=== PATIENT | male | born 1990 | race American Indian/Alaskan Native ===

== ENCOUNTER 2025-04-11 05:25 | Emergency (ER) | payer MEDICAID, SELFPAY ==
[2025-04-11 05:28] VITALS: PULSE 77; RESP 20; O2SAT 99; BMI 36.5
[2025-04-11 05:39] VITALS: BP 161/107; PULSE 84; RESP 20; TEMP 37.3; O2SAT 96
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
[2025-04-11 05:49] VITALS: PULSE 74
--- NOTE | 2025-04-11 05:50 | PD.EDRME ---
Rapid Medical Screening Exam RME Arrival date/time: 04/11/25 05:25 Chief Complaint: Alcohol Time Seen by Provider: 04/11/25 05:36 Vital signs: Vital Signs Temperature 99.2 F 04/11/25 05:39 Pulse Rate 84 04/11/25 05:39 Respiratory Rate 20 04/11/25 05:39 Blood Pressure 161/107 H 04/11/25 05:39 Pulse Oximetry (%) 96 04/11/25 05:39 Oxygen Delivery Method Room Air 04/11/25 05:39 Vital signs reviewed by provider: Yes RME Narrative: 35yo male with a history of alcohol abuse BIBA from home presents to the ED for a chief complaint of alcohol withdrawal. Patient drinks a pint of liquor per day. Patient has not drank for the last few hours and has had persistent N/V. Reports having a history of alcohol withdrawals in the past.
[2025-04-11] MEDS: LORazepam 2 MG/ML VIAL IVP (05:57)
[2025-04-11 06:00] VITALS: BP 122/105; PULSE 94; RESP 18; TEMP 37.2; O2SAT 98
[2025-04-11 06:04] LABS: Basophils # (Auto) 0.1 Thou/mm3 (0.0-0.2); Basophils % (Auto) 2 % (0-2.5); Eosinophils # (Auto) 0.2 Thou/mm3 (0.0-0.5); Eosinophils % (Auto) 4 % (0-10); Hematocrit 39.2 % (41.0-53.0); Hemoglobin 13.7 g/dL (13.5-16.0); Immature Granulocytes Auto 0.02 Thou/mm3 (0.00-0.00); Lymphocytes # (Auto) 1.3 Thou/mm3 (1.0-4.8); Lymphocytes % (Auto) 24 % (10-50); Mean Corpuscular HGB Conc 34.9 g/dl (31.0-37.0); Mean Corpuscular Hemoglobin 30.6 pg (25.0-35.0); Mean Corpuscular Volume 88 fL (80-100); Monocytes # (Auto) 0.6 Thou/mm3 (0.0-0.8); Monocytes % (Auto) 12 % (0-12); Neutrophils # (Auto) 3.1 Thou/mm3 (1.8-7.7); Neutrophils % (Auto) 58 % (37-80); Nucleated Red Blood Cell # 0.00 Thou/mm3 (0.00-0.00); Nucleated Red Blood Cell % 0 /100 WBC (0); Platelet Count 142 Thou/mm3 (140-440); RDW Standard Deviation 48.9 fL (35.1-43.9); Red Blood Count 4.47 Miln/mm3 (4.50-5.90); White Blood Count 5.4 Thou/mm3 (3.8-10.6)
[2025-04-11 06:15] LABS: Amphetamine/Methamp Scrn,U Negative (Negative); Barbiturate Screen,Urine Positive (Negative); Benzodiazepines Screen,Urine Negative (Negative); Benzoylecgonine Screen, Ur Negative (Negative); Fentanyl Screen,Urine Negative (Negative); Opiate Screen,Urine Negative (Negative); THC Screen,Urine Negative (Negative)
[2025-04-11 06:27] LABS: Alanine Aminotransferase 91 U/L (10-49); Albumin, Serum 4.4 gm/dL (3.5-5.0); Albumin/Globulin Ratio 1.4 (1.2-2.2); Alcohol, Blood Medical < 10.0 mg/dL (0-10.0); Alkaline Phosphatase 105 U/L (46-116); Anion Gap 12 (7-16); Aspartate Amino Transferase 132 U/L (0-34); BUN/Creatinine Ratio 7 Ratio (12-20); Bilirubin,Total 1.0 mg/dL (0.3-1.2); Blood Urea Nitrogen 6 mg/dL (9-23); Calcium 9.1 mg/dL (8.3-10.6); Calcium (Corrected) 9.1 mg/dL (8.5-10.1); Carbon Dioxide 25.4 mMol/L (20.0-31.0); Chloride 108 mMol/L (98-107); Creatinine (Component) 0.9 mg/dL (0.6-1.3); Estimated Creatinine Clearance 138.4 mL/min (>60); Globulin 3.1 gm/dL (2.3-3.5); Glucose 109 mg/dL (74-106); Lipase 29 U/L (12-53); Magnesium 1.8 mg/dL (1.6-2.6); Osmolality,Calculated 287 (275-295); Potassium 3.8 mMol/L (3.4-5.1); Sodium 145 mMol/L (136-145); Total Protein 7.5 gm/dL (5.7-8.2); Troponin I < 0.002 ng/mL (0.0-0.045); eGFR > 60 See Note
--- NOTE | 2025-04-11 06:29 | PD.EDALCOH ---
ED Alcohol RME/HPI General Chief Complaint: Alcohol Stated Complaint: N/V Time Seen by Provider: 04/11/25 05:36 Arrival date/time: 04/11/25 05:25 Limitations: no limitations RME / HPI RME / HPI narrative: 35yo male with a history of alcohol abuse TIM from home presents to the ED for a chief complaint of alcohol withdrawal. Patient drinks a pint of liquor per day. Patient has not drank for the last few hours and has had persistent N/V. Reports having a history of alcohol withdrawals in the past. DR. TAVARES MAIN ED EVALUATION: 35 year old male with past medical history of TBI with surgery and alcohol use daily, last drink today presents to the Emergency Department BIBA with complaint of withdrawals and he would like help quitting drinking. Last drink was vodka or something this morning. No history of diabetes or hypertension. Family history is significant for alcohol abuse, both parents. Related Data Previous Rx's ?Medication ?Instructions ?Recorded lorazepam 1 mg tablet (Ativan) 1 mg PO Q4H PRN alcohol withdrawal 04/11/25 #16 tabs Allergies Allergy/AdvReac Type Severity Reaction Status Date / Time CITRIS Allergy Mild Difficulty Uncoded 04/11/25 05:46 Swallowing Review of Systems Review of Systems Systems Reviewed: All systems reviewed, normal except as documented Past Medical History Past Medical History NEUROLOGIC: Positive Cerebrovascular Accident (TBI) Social History SMOKING STATUS: Current some day smoker SUBSTANCE USE: unknown ALCOHOL: Current ED Exam Narrative Physical exam: No tremors General Limitations: Present no limitations General appearance: Present alert and in no apparent distress Head Head exam: Present atraumatic, normocephalic and normal inspection Eye Eye exam: Present normal appearance, PERRL and EOMI ENT ENT exam: Present normal exam, normal oropharynx and mucous membranes moist Neck Neck exam: Present normal inspection, full ROM and trachea midline Chest Chest inspection: Present normal inspection and symmetric chest wall rise Respiratory Respiratory exam: Present normal lung sounds bilaterally Cardiovascular Cardiovascular exam: Present regular rate, normal rhythm and normal heart sounds Abdominal Exam Abdominal exam: Present soft and normal bowel sounds Extremities Exam Extremities exam: Present normal inspection and full ROM Back Exam Back exam: Present normal inspection and full ROM Neurological Exam Neurological exam: Present alert, oriented X3 and CN II-XII intact Psychiatric Psychiatric exam: Present normal affect and normal mood Skin Skin exam: Present warm, dry, intact and normal color Course Quality Measures none Orders Category Date 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 04/11/25 05:49 Active EKG (ED ONLY) *Do not use* NOW Care 04/11/25 05:49 Completed EKG (ED Only) Stat Exams 04/11/25 05:49 Ordered Alcohol, Blood Medical Stat Lab 04/11/25 05:40 Completed B-Type Natriuretic Peptide Stat Lab 04/11/25 05:40 Completed CBC Stat Lab 04/11/25 05:40 Completed Comprehensive Metabolic Panel Stat Lab 04/11/25 05:40 Completed Drug Screen,Urine Stat Lab 04/11/25 05:51 Completed Lipase Stat Lab 04/11/25 05:40 Completed Magnesium Stat Lab 04/11/25 05:40 Completed Partial Thromboplastin Time Stat Lab 04/11/25 05:40 Completed Prothrombin Time with INR Stat Lab 04/11/25 05:40 Completed Troponin I Stat Lab 04/11/25 05:40 Completed LORazepam [Ativan Inj] Med 04/11/25 05:48 Discontinued 2 mg IVP X1 ONE Sodium Chloride 0.9% 1000 ml [Ns] 1,000 ml Med 04/11/25 06:43 Discontinued IV 999 mls/hr Vital Signs Vital signs: Vital Signs Temperature 99.2 F 04/11/25 05:39 Pulse Rate 84 04/11/25 05:39 Respiratory Rate 20 04/11/25 05:39 Blood Pressure 161/107 H 04/11/25 05:39 Pulse Oximetry (%) 96 04/11/25 05:39 Oxygen Delivery Method Room Air 04/11/25 05:39 Discharge Plan Plan Patient Disposition: HOME (Self Care) Patient condition on transfer: Stable Prescriptions/Referrals Prescriptions/Med Rec: New lorazepam [Ativan] 1 mg tablet 1 mg PO Q4H MDD 6 PRN (Reason: alcohol withdrawal) Qty: 16 0RF Referrals: [facility] [Outside] - 04/13/25 No Primary/Family,Physician [Primary Care Provider] - In 1 week Problem List Clinical Impression: Alcohol abuse with withdrawal Patient/Caregiver Discharge Instructions Education Materials: Alcoholism: Getting Help, Alcohol Addiction, Addiction: Getting Help Additional Instructions: Take your Ativan as needed for alcohol withdrawals. Buy a multivitamin and take daily. Please follow-up with your primary care physician within 2-3 days. Return to the Emergency Department as needed. Print Language: Macedonian Stand Alone Forms: Miranda Award Info., Patient Portal Info Letter Alcohol MDM Narrative MDM Narrative: I, Griselda Evans, am scribing for and in the presence of Dr. Tavares. Patient data External records reviewed:: [facility] previous records and EMS form Clinical information provided by:: patient and EMS Social determinants that could affect healthcare access:: alcohol use Patient has the following chronic illnesses:: TBI with surgery and alcohol use daily, last drink today. Family history is significant for alcohol abuse, both parents. How is presenting disease/condition affected by chronic disease/condition?: exacerbated by Evaluation data The following diagnostics were reviewed and interpreted by me:: lab results and EKG tracing(s) Lab and/or radiology exams considered but not ordered:: none Interpretation Summary: My interpretation: EKG performed at 0557 hours, sinus rhythm, rate 83, no acute changes, no STEMI Medications / Prescriptions Medications or Prescriptions considered but not ordered:: none Medication administrations:: Medication Administration History Discontinued Medications Sodium Chloride (Ns) 1,000 mls @ 999 mls/hr IV .Q1H1M ONE Stop: 04/11/25 07:43 Last Infusion: 04/11/25 08:11 Dose: Infused Documented By: Admin: 04/11/25 06:55 Dose: 999 mls/hr Documented By: GISEL Lorazepam (Lorazepam 2 Mg/Ml Vial) 2 mg IVP X1 ONE Stop: 04/11/25 05:49 Last Admin: 04/11/25 05:57 Dose: 2 mg Documented By: SIMON see above Consultations Consultation(s) initiated? (list below): No Diagnosis Differential diagnosis alcohol: alcohol withdrawal delirium, alcohol intoxication, alcohol ketoacidosis and alcohol withdrawal seizure Most likely diagnosis given after review of the tests above:: Alcohol withdrawals Admission Indicated Admission indicated?: not indicated Admission Request Was there a request for admission?: No Disposition Plan Disposition Plan: Discharge Discharge Attestation Discharge Attestation: The patient and all family members were given an opportunity to ask questions and understood the discharge instructions. Discharge instructions specifically effects, indications for sooner follow up or return to the emergency department, and the expected course of current diagnosis. Patient condition: Stable
[2025-04-11 06:38] LABS: INR 1.0 (0.9-1.3); Partial Thromboplastin Time 26.5 Seconds (22.0-36.0); Prothrombin Time 10.8 Seconds (9.0-12.2)
[2025-04-11 06:45] LABS: B-Type Natriuretic Peptide < 20 pg/mL (0-100)
[2025-04-11] MEDS: SODIUM CHLORIDE 0.9% 1000 ML 1,000 ML 999 ML IV (06:55)
[2025-04-11 08:46] VITALS: BP 146/91; PULSE 83; RESP 16; TEMP 36.6; O2SAT 95
[2025-04-11 10:28] VITALS: BP 135/92; PULSE 85; RESP 18; TEMP 36.9; O2SAT 99
== END 2025-04-11 10:30 | disposition home or self-care (01) ==
PROVIDERS: Emergency Medicine; Emergency Provider Family Medicine
DX: F10.139 Alcohol abuse with withdrawal, unspecified (principal); Y90.0 Blood alcohol level of less than 20 mg/100 ml
CPT/HCPCS: 36415; 80053; 80307; 80320; 83690; 83735; 83880; 84484; 85025; 85610; 85730; 93005; 96361; 96374; 99284; J2060; J7030; G0480

== ENCOUNTER 2025-05-06 22:42 | Emergency (ER) | payer MEDICAID, SELFPAY ==
[2025-05-06 22:46] VITALS: BMI 36.5
--- NOTE | 2025-05-06 22:51 | EDNOTE_ITS ---
ED Alcohol RME/HPI General Chief Complaint: Alcohol Stated Complaint: NAUSEA VOMITING DETOX ETOH Arrival date/time: 05/06/25 22:42 RME / HPI RME / HPI narrative: This section includes all my notes and documentations, including HPI, PE, and ED course. Srinivasa Nicholson MD HPI: 35 y/o alcoholic male here with a couple week history of vomiting. Reports decreased alcohol intake due to vomiting. Concerned about alcohol withdrawal. Reports shaking. No abdominal pain. No hematemesis or coffee-ground emesis. No rectal bleeding or tarry stools. No fever or chills. No hallucinations. No seizure. No other complaints. ROS: All negative except as documented in HPI. Physical Exam: General: Alert and oriented. Trembling noted. Eyes: Conjunctivae and lids clear. PERRL. EOMI. ENT: No nasal congestion. Neck: Supple. Heart: Sinus tachycardia noted. Lungs: No respiratory distress. Good air movement. No severe rhonchi, wheezing, rales. Abdomen: Soft with equivocal tenderness, difficult to localize. Normal bowel sounds. No distension. No rebound or guarding. Back: No CVA tenderness. Skin: Warm and dry. Neuro: Alert and oriented X 3. Cranial nerves II through XII grossly normal. No peripheral motor deficits. I reviewed all diagnostic test results: My review of the Abdomen US report is cholelithiasis. My review of the Chest/Abdomen/Pelvis CT report is cholelithiasis. Blood tests and urine tests remarkable for Mg 1.6, AST 119, ALT 129, ammonia 59, and serum alcohol of 431.5. Covid/Influenza: Negative. At this point, diagnoses include: Alcohol intoxication, cholelithiasis, LFT elevation, elevated ammonia. Treatment here included: IV fluid (4 L) Metoprolol 5 mg IV Diazepam 10 mg IV CX 2 Thiamine 100 mg IV Zofran 4 mg IV MgSO4 2 gram IV Some improvement noted. At 6 AM on 05/07/2025, the care of the patient was transferred to Dr. WILKINSON. Srinivasa Nicholson MD Last drink: Days (ago) (~14) Related Data Previous Rx's ?Medication ?Instructions ?Recorded lorazepam 1 mg tablet (Ativan) 1 mg PO Q4H PRN alcohol withdrawal 04/11/25 #16 tabs Allergies Allergy/AdvReac Type Severity Reaction Status Date / Time CITRIS Allergy Mild Difficulty Uncoded 05/06/25 22:54 Swallowing Review of Systems Review of Systems Systems Reviewed: All systems reviewed, normal except as documented Past Medical History Past Medical History NEUROLOGIC: Positive Cerebrovascular Accident (TBI) Social History SMOKING STATUS: Former smoker ALCOHOL: Current ALCOHOL FREQUENCY: 3 or More Drinks per Day ALCOHOL LAST INTAKE: Days (ago) (~14) ED Exam Narrative Physical exam: Refer to HPI Course Quality Measures none Orders Category Date Time Status Bedside COVID-19 Antigen Test NOW Care 05/06/25 23:02 Active Bedside Influenza A&B Antigen Test NOW Care 05/06/25 23:02 Completed Saline [Insert IV] NOW Care 05/06/25 23:[address] chest abdomen pelvis wo Stat Exams 05/06/25 23:03 Taken US abdomen limited Stat Exams 05/07/25 01:25 Taken Acetaminophen Stat Lab 05/06/25 23:27 Completed Alcohol, Blood Medical Stat Lab 05/06/25 23:27 Completed Ammonia Stat Lab 05/06/25 23:27 Completed Amylase Stat Lab 05/06/25 23:27 Completed Beta Hydroxybutyrate Stat Lab 05/06/25 23:27 Completed Bilirubin,Direct Stat Lab 05/06/25 23:27 Completed CBC Stat Lab 05/06/25 23:27 Completed CMP [Comprehensive Metabolic Panel] Stat Lab 05/06/25 23:27 Completed Drug Screen,Urine Stat Lab 05/07/25 03:01 Completed Free T4 (Free Thyroxine) Stat Lab 05/06/25 23:27 Completed Lipase Stat Lab 05/06/25 23:27 Completed Magnesium Stat Lab 05/06/25 23:27 Completed PT [Prothrombin Time with INR] Stat Lab 05/06/25 23:27 Completed PTT [Partial Thromboplastin Time] Stat Lab 05/06/25 23:27 Completed Salicylate Stat Lab 05/06/25 23:27 Completed TSH [Thyroid Stimulating Hormone] Stat Lab 05/06/25 23:27 Completed UA, C/S IF [Urinalysis, C/S if Indicated] Stat Lab 05/07/25 03:01 Completed Diazepam Inj [Valium Inj] Med 05/06/25 23:02 Discontinued 10 mg IVP X1 ONE Diazepam Inj [Valium Inj] Med 05/07/25 03:52 Discontinued 10 mg IVP X1 ONE Magnesium Sulfate 2 GM Ivpb [Magnesium Sulfate Ivpb] Med 05/07/25 01:23 Discontinued 2 gm in 50 ml IV X1 Metoprolol Tartrate Inj [Lopressor Inj] Med 05/06/25 23:06 Discontinued 5 mg IVP X1 ONE Ondansetron Inj [Zofran Inj] Med 05/06/25 23:02 Discontinued 4 mg IVP X1 ONE Sodium Chloride 0.9% 1000 ml [Ns] 1,000 ml Med 05/07/25 03:41 Active IV 200 mls/hr Sodium Chloride 0.9% 1000 ml [Ns] 1,000 ml Med 05/06/25 23:02 Discontinued IV 999 mls/hr Sodium Chloride 0.9% 1000 ml [Ns] 1,000 ml Med 05/07/25 01:54 Discontinued IV 999 mls/hr Sodium Chloride 0.9% 1000 ml [Ns] 1,000 ml Med 05/07/25 02:45 Discontinued IV 999 mls/hr Thiamine Inj [Vitamin B-1 Inj] 100 mg Med 05/06/25 23:06 Discontinued Sodium Chloride 0.9% [Ns] 100 ml IV X1 Vital Signs Vital signs: Vital Signs Temperature 98.4 F 05/06/25 23:03 Pulse Rate 115 H 05/06/25 23:03 Respiratory Rate 18 05/06/25 23:03 Blood Pressure 154/94 H 05/06/25 23:03 Pulse Oximetry (%) 95 05/06/25 23:03 Oxygen Delivery Method Room Air 05/06/25 23:03 Discharge Plan Prescriptions/Referrals Prescriptions/Med Rec: No Action lorazepam [Ativan] 1 mg tablet 1 mg PO Q4H MDD 6 PRN (Reason: alcohol withdrawal) Qty: 16 0RF Referrals: No Primary/Family,Physician [Primary Care Provider] - In 1 week Problem List Clinical Impression: Alcoholic intoxication, Cholelithiasis, LFT elevation, Serum ammonia increased Patient/Caregiver Discharge Instructions Print Language: Irish Alcohol MDM Narrative MDM Narrative: Scribe Attestation: Erika Leonardo am scribing for and in the presence of Dr. Nicholson. Provider Notation: Although this document has been carefully reviewed, there may still be some phonetic and other typographical errors.? These errors are purely grammatical due to imperfections in the software program and should not be construed in any way to? compromise the substance of the patient's medical care during this visit. 35 y/o alcoholic male here with a couple week history of vomiting. Reports decreased alcohol intake due to vomiting. Concerned about alcohol withdrawal. Reports shaking. No abdominal pain. No hematemesis or coffee-ground emesis. No rectal bleeding or tarry stools. No fever or chills. No hallucinations. No seizure. No other complaints. Patient data External records reviewed:: [facility] previous records (Reviewed prior ED records from 04/11/25. Patient was seen for Alcohol abuse with withdrawal.) Clinical information provided by:: patient Social determinants that could affect healthcare access:: alcohol use Patient has the following chronic illnesses:: Alcohol abuse How is presenting disease/condition affected by chronic disease/condition?: exacerbated by Evaluation data The following diagnostics were reviewed and interpreted by me:: lab results and radiology exam(s) Lab and/or radiology exams considered but not ordered:: None Interpretation Summary: I reviewed all diagnostic test results: My review of the Abdomen US report is cholelithiasis. My review of the Chest/Abdomen/Pelvis CT report is cholelithiasis. Blood tests and urine tests remarkable for Mg 1.6, AST 119, ALT 129, ammonia 59, and serum alcohol of 431.5. Covid/Influenza: Negative. Medications / Prescriptions Medications or Prescriptions considered but not ordered:: None Medication administrations:: Medication Administration History Sodium Chloride (Ns) 1,000 mls @ 200 mls/hr IV .Q5H ONE Stop: 05/07/25 08:40 Last Admin: 05/07/25 03:52 Dose: 200 mls/hr Documented By: DT Discontinued Medications Diazepam (Diazepam Inj 5 Mg/Ml Vial 2 Ml) 10 mg IVP X1 ONE Stop: 05/06/25 23:03 Last Admin: 05/07/25 00:37 Dose: 10 mg Documented By: DT Diazepam (Diazepam Inj 5 Mg/Ml Vial 2 Ml) 10 mg IVP X1 ONE Stop: 05/07/25 03:53 Last Admin: 05/07/25 04:12 Dose: 10 mg Documented By: DT Sodium Chloride (Ns) 1,000 mls @ 999 mls/hr IV .Q1H1M ONE Stop: 05/07/25 00:02 Last Infusion: 05/07/25 01:39 Dose: Infused Documented By: Admin: 05/07/25 00:36 Dose: 999 mls/hr Documented By: DT Thiamine HCl 100 mg/ Sodium (Chloride) 101 mls @ 202 mls/hr IV X1 ONE Stop: 05/06/25 23:35 Last Infusion: 05/07/25 01:30 Dose: Infused Documented By: Admin: 05/07/25 00:41 Dose: 202 mls/hr Documented By: DT Magnesium Sulfate (Magnesium Sulfate Ivpb) 2 gm in 50 mls @ 25 mls/hr IV X1 ONE Stop: 05/07/25 03:22 Last Infusion: 05/07/25 03:36 Dose: Infused Documented By: Admin: 05/07/25 01:34 Dose: 25 mls/hr Documented By: DT Sodium Chloride (Ns) 1,000 mls @ 999 mls/hr IV .Q1H1M ONE Stop: 05/07/25 02:54 Last Infusion: 05/07/25 03:19 Dose: Infused Documented By: Admin: 05/07/25 02:18 Dose: 999 mls/hr Documented By: DT Sodium Chloride (Ns) 1,000 mls @ 999 mls/hr IV .Q1H1M ONE Stop: 05/07/25 03:45 Last Infusion: 05/07/25 04:03 Dose: Infused Documented By: Admin: 05/07/25 02:57 Dose: 999 mls/hr Documented By: DT Metoprolol Tartrate (Metoprolol Tartrate Inj 1 Mg/Ml Amp 5 Ml) 5 mg IVP X1 ONE Stop: 05/06/25 23:07 Last Admin: 05/07/25 00:45 Dose: Not Given Documented By: DT Non-Admin Reason: Change of Condition Ondansetron HCl (Ondansetron Inj 2 Mg/Ml Inj 2 Ml) 4 mg IVP X1 ONE; Protocol Stop: 05/06/25 23:03 Last Admin: 05/07/25 00:37 Dose: 4 mg Documented By: DT Treatment here included: IV fluid (4 L) Metoprolol 5 mg IV Diazepam 10 mg IV CX 2 Thiamine 100 mg IV Zofran 4 mg IV MgSO4 2 gram IV Consultations Consultation(s) initiated? (list below): No Diagnosis Differential diagnosis alcohol: alcohol withdrawal delirium, hypomagnesemia, alcohol intoxication, alcohol ketoacidosis, alcohol withdrawal syndrome and alcohol withdrawal seizure Most likely diagnosis given after review of the tests above:: At this point, diagnoses include: Alcohol intoxication, cholelithiasis, LFT elevation, elevated ammonia. Admission Indicated Admission indicated?: not indicated Explain why admission is indicated or not indicated:: At 6 AM on 05/07/2025, the care of the patient was transferred to Dr. WILKINSON. Admission Request Was there a request for admission?: No Disposition Plan Disposition Plan: other (specify) (At 6 AM on 05/07/2025, the care of the patient was transferred to Dr. WILKINSON.)
[2025-05-06 23:03] VITALS: BP 154/94; PULSE 115; RESP 18; TEMP 36.9; O2SAT 95
--- NOTE | 2025-05-06 23:03 | XR_ITS ---
Examination: CT chest, without intravenous contrast. CT abdomen, without intravenous contrast. CT pelvis, without intravenous contrast. 2-D sagittal and coronal reconstructions. 3-D reconstructions. Date and time of exam:May 07, 2025, 0108 hours INDICATIONS: Nausea vomiting abdominal pain beginning 4 days ago, alcohol abuse history. CTDI vol (mgy) 8.57. DLP (MGycm)684. Technique: Multiple CT images, 3.0 mm slice thickness, obtained chest, abdomen, pelvis, with the high-resolution 64 slice scanner.. Sagittal and coronal 2-D reconstructions are obtained. 3-D reconstructions Low dose protocols were performed. One or more of the following dose reduction techniques were used; automated exposure control, adjustment of the mA and/or KV according to patient size, use of iterative reconstruction technique. Findings: Severe diffuse fatty infiltration throughout the liver Distended gallbladder with gallstones No definite common bile duct stones No pancreatitis Spleen is not enlarged No renal or ureteral calculi, no hydronephrosis No bowel obstruction. Normal appendix No diverticulitis Intact urinary bladder Mild osteopenia IMPRESSION: Severe diffuse fatty infiltration throughout the liver Distended gallbladder with gallstones, recommend gallbladder sonography follow-up
[2025-05-06 23:37] LABS: Basophils # (Auto) 0.1 Thou/mm3 (0.0-0.2); Basophils % (Auto) 2 % (0-2.5); Eosinophils # (Auto) 0.0 Thou/mm3 (0.0-0.5); Eosinophils % (Auto) 1 % (0-10); Hematocrit 46.3 % (41.0-53.0); Hemoglobin 16.0 g/dL (13.5-16.0); Immature Granulocytes Auto 0.01 Thou/mm3 (0.00-0.00); Lymphocytes # (Auto) 3.7 Thou/mm3 (1.0-4.8); Lymphocytes % (Auto) 60 % (10-50); Mean Corpuscular HGB Conc 34.6 g/dl (31.0-37.0); Mean Corpuscular Hemoglobin 30.2 pg (25.0-35.0); Mean Corpuscular Volume 87 fL (80-100); Monocytes # (Auto) 0.4 Thou/mm3 (0.0-0.8); Monocytes % (Auto) 6 % (0-12); Neutrophils # (Auto) 1.9 Thou/mm3 (1.8-7.7); Neutrophils % (Auto) 31 % (37-80); Nucleated Red Blood Cell # 0.00 Thou/mm3 (0.00-0.00); Nucleated Red Blood Cell % 0 /100 WBC (0); Platelet Count 244 Thou/mm3 (140-440); RDW Standard Deviation 43.6 fL (35.1-43.9); Red Blood Count 5.30 Miln/mm3 (4.50-5.90); White Blood Count 6.2 Thou/mm3 (3.8-10.6)
[2025-05-06 23:55] LABS: Beta Hydroxybutyrate 0.0 mmol/L (<0.6)
[2025-05-07] VITALS (9 sets, daily range): BP systolic 104–144; BP diastolic 66–95; PULSE 78–94; RESP 14–20; TEMP 36.3–37; O2SAT 95–99
[2025-05-07 00:24] LABS: Ammonia 59 uMol/L (11-32)
[2025-05-07 00:27] LABS: INR 1.1 (0.9-1.3); Partial Thromboplastin Time 29.1 Seconds (22.0-36.0); Prothrombin Time 12.1 Seconds (9.0-12.2)
[2025-05-07] MEDS: SODIUM CHLORIDE 0.9% 1000 ML 1,000 ML 999 ML IV ×3 (00:36→02:57)
[2025-05-07] MEDS: ONDANSETRON INJ 2 MG/ML INJ 2 ML 4 MG IVP (00:37)
[2025-05-07] MEDS: DIAZEPAM INJ 5 MG/ML VIAL 2 ML 10 MG IVP ×2 (00:37→04:12)
[2025-05-07] MEDS: THIAMINE INJ 100 MG in SODIUM CHLORIDE 0.9% 100 ML 202 MG IV (00:41)
[2025-05-07 00:43] LABS: Acetaminophen < 2.0 mcg/mL (10.0-20.0); Alanine Aminotransferase 129 U/L (10-49); Albumin, Serum 4.6 gm/dL (3.5-5.0); Albumin/Globulin Ratio 1.5 (1.2-2.2); Alkaline Phosphatase 108 U/L (46-116); Amylase 79 U/L (30-118); Anion Gap 14 (7-16); Aspartate Amino Transferase 119 U/L (0-34); BUN/Creatinine Ratio 6 Ratio (12-20); Bilirubin,Direct 0.2 mg/dL (0.0-0.3); Bilirubin,Total 1.2 mg/dL (0.3-1.2); Blood Urea Nitrogen 7 mg/dL (9-23); Calcium 8.5 mg/dL (8.3-10.6); Calcium (Corrected) 8.5 mg/dL (8.5-10.1); Carbon Dioxide 21.7 mMol/L (20.0-31.0); Chloride 105 mMol/L (98-107); Creatinine (Component) 1.2 mg/dL (0.6-1.3); Estimated Creatinine Clearance 103.8 mL/min (>60); Free T4 (Free Thyroxine) 1.59 ng/dL (0.89-1.76); Globulin 3.1 gm/dL (2.3-3.5); Glucose 134 mg/dL (74-106); Lipase 33 U/L (12-53); Magnesium 1.6 mg/dL (1.6-2.6); Osmolality,Calculated 281 (275-295); Potassium 3.9 mMol/L (3.4-5.1); Salicylate < 3.0 mg/dL; Sodium 141 mMol/L (136-145); Thyroid Stimulating Hormone 0.88 uIU/mL (0.55-4.78); Total Protein 7.7 gm/dL (5.7-8.2); eGFR > 60 See Note
[2025-05-07 00:45] LABS: Alcohol, Blood Medical 431.5 mg/dL (0-10.0)
--- NOTE | 2025-05-07 01:25 | XR_ITS ---
Examination: Abdomen sonogram, Limited Date and time of exam: May 07, 2025 0237 hours INDICATIONS: Right upper abdominal pain with nausea this week Technique: Real-time person scale transabdominal sonographic images of the upper abdomen obtained. Findings: Gallstones. Normal gallbladder wall. Common bile duct 0.62 cm no stones Pancreas obscured by bowel gas Liver 17.3 cm no liver lesions Normal hepatopedal portal venous flow Patent IVC IMPRESSION: Cholelithiasis, negative for cholecystitis Abnormally enlarged common bile duct, consider MRCP follow-up as clinically warranted
[2025-05-07] MEDS: Magnesium Sulfate 2 GM Ivpb 2 GM/50 ML BAG IV (01:34)
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
--- NOTE | 2025-05-07 02:17 | PC.NURSE ---
[facility] AT BEDSIDE SPEAKING WITH PT.
--- NOTE | 2025-05-07 02:23 | PRELIM_ITS ---
CT scan of the chest, abdomen and pelvis without intravenous contrast (axial sections with sagittal and coronal reformats) May 07, 2025 0108 hours Clinical History: SOB ABD PAIN No prior study is available for comparison. Findings: The lungs are clear. There is no pleural effusion or pneumothorax. The aorta is unremarkable on this noncontrast study. No evidence of mediastinal mass or lymphadenopathy. There is no pericardial effusion. Fatty infiltration of the liver is noted. The gallbladder is distended with dependent hyperdensity, which may represent sludge versus layering calculi. The spleen, pancreas, adrenals and kidneys are unremarkable on this noncontrast study. A small hiatal hernia is present. No evidence of bowel obstruction. The appendix is within normal limits. There is submucosal fatty infiltration of the colon. The urinary bladder is unremarkable. There is no free fluid or free air. Mild degenerative changes are identified in the spine. Impression: Cholelithiasis in distended gallbladder. Recommend clinical correlation and follow-up with sonography. Fatty liver. Other findings as described above. Report Electronically Signed By: Dani Ram 05/07/2025 2:22:50 AM [EST]
[2025-05-07 03:25] LABS: Collection Type, Urine Clean Catch; Squamous Epithelial Cell,Urine 0 /hpf (0-5)
--- NOTE | 2025-05-07 03:35 | PRELIM_ITS ---
Right upper quadrant abdominal ultrasound. May 07, 2025 0237 hours Clinical history: Abdominal pain and vomiting Technique: Grayscale and color flow images of the right upper quadrant are provided. Hepatic and portal veins were also imaged with color flow images. Comparison: Correlated with the prior CT study dated May 07, 2025 Findings: The liver demonstrates increased echogenicity. No intrahepatic biliary ductal dilatation. The gallbladder is distended measuring 11.8 x 3.7 5.7 cm Multiple calculi are noted within the gallbladder, without evidence of gallbladder wall thickening or pericholecystic fluid. The common bile duct is normal in mildly dilated measuring 6.2 mm. The pancreas is not visualized. Impression: Cholelithiasis without evidence of acute cholecystitis. Distended gallbladder with mildly dilated common bile duct, without sonographic evidence of obstructing calculus. Recommend clinical correlation and follow-up with MRCP. Hepatic steatosis. Report Electronically Signed By: Adarsh Lee 05/07/2025 3:34:42 AM [EST]
[2025-05-07 03:37] LABS: Amphetamine/Methamp Scrn,U Negative (Negative); Barbiturate Screen,Urine Negative (Negative); Benzodiazepines Screen,Urine Negative (Negative); Benzoylecgonine Screen, Ur Negative (Negative); Fentanyl Screen,Urine Negative (Negative); Opiate Screen,Urine Negative (Negative); THC Screen,Urine Negative (Negative)
[2025-05-07] MEDS: SODIUM CHLORIDE 0.9% 1000 ML 1,000 ML 200 ML IV (03:52)
[2025-05-07 04:21] LABS: Bilirubin,Urine Negative (Negative); Blood,Urine Trace (Negative); Clarity,Urine Clear (Clear/Hazy); Color,Urine Yellow (Lt Yel-Yel); Culture Indicated,Urine Not Indicated; Glucose, Urine Negative (Negative); Ketones,Urine Negative (Negative); Leukocyte Esterase,Urine Negative (Negative); Nitrite,Urine Negative (Negative); PH,Urine 6.0 (5.0-7.0); Protein,Urine 3+ (Neg - Trace); RBC,Urine 1 /hpf (0-3); Specific Gravity,Urine 1.047 (1.001-1.035); Urobilinogen,Urine Negative mg/dL (0.0-1.0); WBC,Urine < 1 /hpf (0-5)
--- NOTE | 2025-05-07 06:22 | PD.EDADDENDU ---
Emergency Room Addendum Addendum Narrative: 0600: Care assumed from Dr. Nicholson, the previous shift emergency physician. Past medical, surgical, social and family history reviewed. Vitals and home medications reviewed. I will assume the care of the patient at this time, pending the patient to sober up for discharge. Please refer to the emergency department record for history and examination from initial visit.? Physical exam by me shows patient under no acute distress at this time. 1115: Patient remains clinically stable throughout the emergency department visit. Re-assessment at the time of disposition demonstrates that the patient is in no acute distress. We reviewed all the results, analysis, and treatment plans. Patient is amenable to discharge. Strict return precautions were outlined. Patient was discharged in stable condition. Diagnoses: -Alcoholic intoxication -Cholelithiasis -LFT elevation -Serum ammonia increased
--- NOTE | 2025-05-07 07:21 | PC.NURSE ---
Patient in [place] resting at this time. Patient arousable by calling name GCS 15. Denies any pain at this time. No signs of acute distress noted.
== END 2025-05-07 11:50 | disposition home or self-care (01) ==
PROVIDERS: Emergency Medicine; Emergency Provider Emergency Medicine
DX: K80.20 Calculus of gallbladder without cholecystitis without obstruction (principal); E72.20 Disorder of urea cycle metabolism, unspecified; R79.89 Other specified abnormal findings of blood chemistry; F10.129 Alcohol abuse with intoxication, unspecified; Y90.8 Blood alcohol level of 240 mg/100 ml or more
CPT/HCPCS: 36415; 71250; 74176; 76705; 80053; 80307; 80320; 80329; 81001; 82010; 82140; 82150; 82248; 83690; 83735; 84439; 84443; 85025; 85610; 85730; 87400; 87811; 96361; 96365; 96366; 96375; 96376; 99284; J2405; J3360; J3411; J3475; J7030; J7050; G0480